=== PATIENT | male | born 1960 | race Caucasian/White ===

== ENCOUNTER 2019-02-16 14:43 | Emergency (ER) | payer MEDICARE, SELFPAY ==
[2019-02-16 14:48] VITALS: BP 107/60; PULSE 105; RESP 18; TEMP 37.4; O2SAT 98; BMI 27.3
--- NOTE | 2019-02-16 14:50 | ED.RN ---
STATES CHEST IS NO LONGER HURTING NOW THAT HE IS NOT WALKING AROUND
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
--- NOTE | 2019-02-16 15:30 | ED.DEP ---
ED Disposition - Plan for ED Patient: Instructions: Fibromyalgia Prescriptions: Acetaminophen [Tylenol] 325 mg PO Q4H PRN PRN #30 cap PRN Reason: Pain Score 1-10/10 Prescription Printed Referrals: Isai Thompson MD [Primary Care Provider] - 5-7 Days
--- NOTE | 2019-02-16 16:10 | CM.ED ---
Social Work Consult: Transportation Informant: GRETTA Greco After patient discharged from Emergency department it was determined that patient will need transportation to home. This social work faculty member met with patient in triage. Patient appearing to have difficulty following directions on Google maps to get to [facility]. This social work faculty member educating patient on [facility] as an option. Patient stating that [facility] will work. This social work faculty member showing patient where [facility] warp picker is. All questions answered. Vipul VELEZ, SULEMA
--- NOTE | 2019-02-16 16:17 | ED.RN ---
DISCHARGE INSTRUCTIONS GIVEN TO AND REVIEWED WITH PATIENT, PATIENT DENIES QUESTIONS OR CONCERNS AND VOICES UNDERSTANDING OF DISCHARGE INSTRUCTIONS. PT AMBULATES OUT OF ROOM WITHOUT DIFFICULTY.
== END 2019-02-16 16:18 | disposition home or self-care (01) ==
PROVIDERS: Emergency Provider Emergency Medicine
DX: M79.605 Pain in left leg (principal); R07.9 Chest pain, unspecified; G89.29 Other chronic pain; F20.9 Schizophrenia, unspecified; M79.7 Fibromyalgia; Z72.0 Tobacco use
CPT/HCPCS: 99284

== ENCOUNTER 2019-02-25 23:52 | Emergency (ER) | payer MEDICARE, SELFPAY ==
[2019-02-25 23:53] VITALS: BP 124/76; PULSE 96; RESP 16; TEMP 36.7; O2SAT 95; BMI 31.9
[2019-02-26] VITALS (7 sets, daily range): BP systolic 101; BP diastolic 48; PULSE 66; RESP 15–18; O2SAT 96
--- NOTE | 2019-02-26 00:03 | ED.RN ---
PT STATES HE HEARS VOICES THAT TELL HIM TO JUMP IN FRONT OF SEMI TO KILL HIMSELF. SEES ANGELS, WANTS TO BUT DENIES THOUGHTS OF WANTING TO HARM ANYONE ELSE. STATES HE ATTEMPTED OVERDOSE IN PAST, ALSO ATTEMPTED TO BLOW UP HOUSE WITH GAS LEAK. PT UNDER CONSTANT OBSERVATION FROM TIME OF ARRIVAL BY GRETTA.
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
[2019-02-26 00:23] LABS: Absolute Lymphocyte Count 1.52 X10^3/uL (0.83-4.51); Absolute Neutrophil Count 4.1 X10^3/uL (2.0-7.7); Basophil# 0.06 X10^3/uL; Basophil% 0.9 % (0-1); Eosinophil# 0.22 X10^3/uL; Eosinophils% 3.2 % (0-5); Hematocrit 41.6 % (40-54); Hemoglobin 13.9 g/dL (13.0-16.5); Lymphocyte # 1.52 X10^3/ul (4.0); Mean Corp Hgb Conc 33.4 g/dL (32-36); Mean Corpuscular Hgb 29.5 pg (27.0-32.0); Mean Corpuscular Volume 88.3 fL (80-94); Monocyte# 0.95 X10^3/uL; Monocyte% 13.8 % (0-10); NRBC Flagged by Analyzer 0.3 % (0-5); Neutrophil # 4.12 X10^3/uL (2.7-7.7); Neutrophil % 59.7 % (47-70); Platelet Count 323 K/mm3 (150-450); RBC Distribution Width CV 13.4 % (11.6-14.6); RBC Distribution Width SD 43.8 fl (35.1-43.9); Red Blood Count 4.71 M/mm3 (4.6-6.2); White Blood Count 6.9 K/mm3 (4.4-11.0)
--- NOTE | 2019-02-26 00:24 | ED.DCSUM_ITS ---
- ER Visit Summary Date of Service: 02/26/19 Chief Complaint: Suicidal ideation History of Present Illness: The patient is a 58 M presenting per police for suicidal ideation. He states that he is suicidal and has thought of running in front of a semi-truck. He states that he feels that someone is trying to steal money from him. He believes people are out to get him. He denies hallucinations. He admits to marijuana use. Admits to occasional alcohol use. Physical Examination: Vitals are stable. Patient is afebrile. Alert no acute distress. HEENT exam is unremarkable. Neck is supple. Lungs are clear and equal bilaterally. Heart is regular rate and rhythm. Extremities are unremarkable. Skin is warm and dry. No focal neurologic deficit. Pressured speech, suicidal ideation, paranoid ideation Remainder of exam is unremarkable. Emergency Department Course and Treatment: CBC unremarkable. Chemistries normal except BUN 25, glucose 117. Alcohol and tox are negative. Discussed with the counseling center for evaluation. Disposition: Per counseling center Impression: Suicidal ideation, paranoia This note was generated with [employer] dictation software. It may contain incorrect words, spelling, and punctuation that were not noted in review of the chart prior to signing ED Disposition - Plan for ED Patient: Referrals: Care Physician,No Primary [Primary Care Provider] -
[2019-02-26 00:28] LABS: Anion Gap 8 (5-15); BUN 25 mg/dL (7-18); BUN/Creat Ratio 34.1 RATIO (10-20); Calcium,Total 9.5 mg/dL (8.5-10.1); Chloride 106 mmol/L (98-107); Creatinine, Serum 0.73 mg/dL (0.70-1.30); EST Glomerular Filtration Rate 117 mL/min (>60); Est Glom Filt Rate - Afr Amer 141 mL/min (>60); Estimated Creatinine Clearance 103.12 ml/min; Glucose 117 mg/dL (74-106); Potassium 3.6 mmol/L (3.5-5.1); Sodium Level 138 mmol/L (136-145)
[2019-02-26 00:36] LABS: Amphetamine Urine VISTA NEGATIVE (<1000 ng/mL); Barbiturate Urine VISTA NEGATIVE (< 200 ng/mL); Benzodiazepine Urine VISTA NEGATIVE (< 200 ng/mL); Cocaine Urine VISTA NEGATIVE (< 300 ng/mL); Ecstacy Urine VISTA NEGATIVE (< 500 ng/mL); Methadone Urine VISTA NEGATIVE (< 300 ng/mL); PCP Urine VISTA NEGATIVE (< 25 ng/mL); THC Urine VISTA NEGATIVE (< 50 ng/mL); Vista UDS pH Range 5
--- NOTE | 2019-02-26 07:23 | ED.RN ---
[facility] DENIED PT. HE DOES NOT HAVE ENOUGH BED DAYS PER TARI GLYNN
[2019-02-26] MEDS: Meloxicam 15 MG Tablet PO (12:06)
[2019-02-26] MEDS: Loratadine 10 MG Tablet PO (12:06)
[2019-02-26] MEDS: Lisinopril 10 MG Tablet PO (12:06)
[2019-02-26] MEDS: OXcarbazepine 300 MG Tablet PO (12:06)
== END 2019-02-26 12:50 ==
PROVIDERS: Emergency Provider Emergency Medicine
DX: R45.851 Suicidal ideations (principal); F22 Delusional disorders; I10 Essential (primary) hypertension; Z79.899 Other long term (current) drug therapy; F12.90 Cannabis use, unspecified, uncomplicated; Z72.0 Tobacco use
CPT/HCPCS: 80048; 80307; 80320; 85025; 99285; G0480

== ENCOUNTER 2019-03-11 20:23 | Emergency (ER) | payer MEDICARE, SELFPAY ==
[2019-03-11 20:24] VITALS: BP 128/88; PULSE 85; RESP 18; TEMP 36.7; O2SAT 95; BMI 30.2
--- NOTE | 2019-03-11 20:40 | ED.DCSUM_ITS ---
- ER Visit Summary Date of Service: 03/11/19 Chief Complaint: Suicidal thoughts History of Present Illness: The patient is a 58 M presenting with suicidal thoughts. Patient states he was upset today because his girlfriend did not come visit him. He is currently homeless and living in a hotel. He has a plan to jump in front of a car or truck. He had the same plan within the last month and was admitted. He continues to feel suicidal. He states he is not on any medication for depression. He admits to alcohol use. Denies drug use. Physical Examination: Vitals are stable. Patient is afebrile. Alert no acute distress. HEENT exam is unremarkable. Neck is supple. Lungs are clear and equal bilaterally. Heart is regular rate and rhythm. Abdomen is soft nontender nondistended. Extremities are unremarkable. Skin is warm and dry. No focal neurologic deficit. Depressed affect Remainder of exam is unremarkable. Emergency Department Course and Treatment: CBC, chemistries unremarkable. Alcohol 20. Tox is pending. Patient will be evaluated by the counseling center in the ED. Disposition: Per counseling center Impression: Suicidal ideation This note was generated with [employer] dictation software. It may contain incorrect words, spelling, and punctuation that were not noted in review of the chart prior to signing ED Disposition - Plan for ED Patient: Referrals: Care Physician,No Primary [Primary Care Provider] -
[2019-03-11 21:01] LABS: Basophil# 0.06 X10^3/uL; Basophil% 0.7 % (0-1); Eosinophil# 0.22 X10^3/uL; Eosinophils% 2.6 % (0-5); Hematocrit 45.1 % (40-54); Hemoglobin 14.9 g/dL (13.0-16.5); Lymphocyte % 28.6 % (19-41); Mean Corpuscular Hgb 29.7 pg (27.0-32.0); Mean Corpuscular Volume 89.8 fL (80-94); Mean Platelet Vol. 8.9 fl (6.2-12.0); Monocyte# 0.72 X10^3/uL; Monocyte% 8.6 % (0-10); NRBC Flagged by Analyzer 0 % (0-5); Neutrophil # 4.96 X10^3/uL (2.7-7.7); Neutrophil % 59.3 % (47-70); Platelet Count 335 K/mm3 (150-450); RBC Distribution Width CV 13.2 % (11.6-14.6); RBC Distribution Width SD 43.4 fl (35.1-43.9); Red Blood Count 5.02 M/mm3 (4.6-6.2); White Blood Count 8.4 K/mm3 (4.4-11.0)
[2019-03-11 21:03] LABS: Anion Gap 8 (5-15); BUN 17 mg/dL (7-18); BUN/Creat Ratio 28.3 RATIO (10-20); Calcium,Total 9.5 mg/dL (8.5-10.1); Chloride 107 mmol/L (98-107); EST Glomerular Filtration Rate 147 mL/min (>60); Est Glom Filt Rate - Afr Amer 177 mL/min (>60); Estimated Creatinine Clearance 125.47 ml/min; Glucose 91 mg/dL (74-106); Sodium Level 141 mmol/L (136-145)
[2019-03-11 22:23] VITALS: BP 111/73; PULSE 73; RESP 16; O2SAT 97
[2019-03-11 22:59] LABS: Amphetamine Urine VISTA NEGATIVE (<1000 ng/mL); Barbiturate Urine VISTA NEGATIVE (< 200 ng/mL); Benzodiazepine Urine VISTA NEGATIVE (< 200 ng/mL); Cocaine Urine VISTA NEGATIVE (< 300 ng/mL); Ecstacy Urine VISTA NEGATIVE (< 500 ng/mL); Methadone Urine VISTA NEGATIVE (< 300 ng/mL); PCP Urine VISTA NEGATIVE (< 25 ng/mL); THC Urine VISTA NEGATIVE (< 50 ng/mL); Vista UDS pH Range 6
[2019-03-11 23:13] VITALS: RESP 18
[2019-03-12 00:08] VITALS: BP 98/62; PULSE 69; RESP 20; O2SAT 96
[2019-03-12 03:11] VITALS: RESP 16
[2019-03-12 04:02] VITALS: BP 125/65; PULSE 59; RESP 16; O2SAT 97
[2019-03-12 05:11] VITALS: RESP 15
[2019-03-12 06:17] VITALS: RESP 16
--- NOTE | 2019-03-12 08:06 | NURSING ---
0800 CALLED [facility], NONE TIL THIS EVENING 08 CALLED [facility], SENDING ONE FROM [place]
[2019-03-12] MEDS: Meloxicam 15 MG Tablet PO (08:59)
[2019-03-12] MEDS: Lisinopril 10 MG Tablet PO (08:59)
[2019-03-12] MEDS: Loratadine 10 MG Tablet PO (08:59)
[2019-03-12 09:01] VITALS: BP 124/60; PULSE 62; RESP 18; O2SAT 97
== END 2019-03-12 09:03 | disposition home or self-care (01) ==
PROVIDERS: Emergency Provider Emergency Medicine
DX: R45.851 Suicidal ideations (principal); Z59.0 Homelessness; I25.10 Atherosclerotic heart disease of native coronary artery without angina pectoris; I10 Essential (primary) hypertension; Z72.0 Tobacco use; F32.9 Major depressive disorder, single episode, unspecified; Z72.89 Other problems related to lifestyle
CPT/HCPCS: 36415; 80048; 80307; 80320; 85025; 99285; G0480

== ENCOUNTER 2019-03-28 18:11 | Emergency (ER) | payer MEDICARE, SELFPAY ==
[2019-03-28 18:14] VITALS: BP 112/73; PULSE 97; RESP 20; TEMP 36.8; O2SAT 94; BMI 28.1
--- NOTE | 2019-03-28 18:18 | EKG12_ITS ---
Test Reason : CP Blood Pressure : / mmHG Vent. Rate : 099 BPM Atrial Rate : 099 BPM P-R Int : 176 ms QRS Dur : 090 ms QT Int : 366 ms P-R-T Axes : 071 010 070 degrees QTc Int : 469 ms Normal sinus rhythm Nonspecific ST abnormality Abnormal ECG Confirmed by FABIO BEDOYA, ERIC ([id number]), news videotape editor YOMAIRA ARCE ([id number]) on 03/31/2019 11:38:54 AM Referred By: Isai Thompson Confirmed By:ERIC MCCARTHY MD
--- NOTE | 2019-03-28 18:18 | RAD_ITS ---
STUDY: X-RAY CHEST REASON FOR EXAM: Male, 58 years old. Chest pain TECHNIQUE: Frontal and lateral views of the chest. COMPARISON: None. FINDINGS: Skin staple on the right. Multiple calcified pulmonary granulomata. The lungs are clear and expanded. There is no demonstrated pleural abnormality. Normal size heart. Normal mediastinum and jumana. Normal visualized pulmonary arteries. Normal visualized aortic arch and descending thoracic aorta. Normal visualized thoracic spine. Normal visualized ribs, clavicles, and shoulders. There is no demonstrated abnormality of the visualized soft tissue structures of the upper abdomen. RAD/Chest PA and Lateral IMPRESSION: No acute pulmonary findings. Electronically Signed: Shon Odom MD at 19:17 EST Tel , Service support ,
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
[2019-03-28] MEDS: Albuterol 2.5 MG/3 ML VIAL.NEB. INHALATION (18:29)
[2019-03-28 18:30] VITALS: PULSE 97; RESP 18
[2019-03-28 18:32] LABS: Absolute Lymphocyte Count 1.91 X10^3/uL (0.83-4.51); Absolute Neutrophil Count 5.7 X10^3/uL (2.0-7.7); Basophil# 0.05 X10^3/uL; Basophil% 0.6 % (0-1); Eosinophil# 0.26 X10^3/uL; Eosinophils% 2.9 % (0-5); Hematocrit 38.6 % (40-54); Hemoglobin 12.9 g/dL (13.0-16.5); Lymphocyte # 1.91 X10^3/ul (4.0); Lymphocyte % 21.6 % (19-41); Mean Corp Hgb Conc 33.4 g/dL (32-36); Mean Corpuscular Hgb 29.5 pg (27.0-32.0); Mean Corpuscular Volume 88.3 fL (80-94); Mean Platelet Vol. 8.9 fl (6.2-12.0); Monocyte% 10.2 % (0-10); NRBC Flagged by Analyzer 0 % (0-5); Neutrophil # 5.68 X10^3/uL (2.7-7.7); Neutrophil % 64.4 % (47-70); Platelet Count 267 K/mm3 (150-450); RBC Distribution Width CV 13.7 % (11.6-14.6); RBC Distribution Width SD 44.6 fl (35.1-43.9); Red Blood Count 4.37 M/mm3 (4.6-6.2); White Blood Count 8.8 K/mm3 (4.4-11.0)
[2019-03-28] MEDS: Ketorolac 15 MG/ML Vial IV (18:36)
[2019-03-28 18:51] LABS: D-Dimer Quantitative (DVT/PE) 0.31 FEU/ug/m (0.27-0.49)
[2019-03-28 18:54] LABS: Anion Gap 7 (5-15); BUN 20 mg/dL (7-18); BUN/Creat Ratio 24.8 RATIO (10-20); Calcium,Total 8.8 mg/dL (8.5-10.1); Chloride 107 mmol/L (98-107); EST Glomerular Filtration Rate 105 mL/min (>60); Est Glom Filt Rate - Afr Amer 127 mL/min (>60); Estimated Creatinine Clearance 97.38 ml/min; Glucose 109 mg/dL (74-106); Potassium 3.6 mmol/L (3.5-5.1); Sodium Level 141 mmol/L (136-145)
[2019-03-28 20:09] VITALS: BP 128/76; PULSE 76; RESP 14
[2019-03-28 20:57] VITALS: BP 124/76; PULSE 93; RESP 15
--- NOTE | 2019-03-28 21:20 | CM.ED ---
SOCIAL WORK INFORMANT: NURSEERICA REASON FOR REFERRAL: PATIENT REPORTS HE IS HOMELESS MET WITH PATIENT IN ROOM. INTRODUCED ROLE AND REASON FOR REFERRAL. PATIENT STATES WAS STAYING AT THE [facility] AND UNSURE IF HE CAN RETURN. PATIENT STATES FRIEND WAS PAYING FOR HIM TO STAY IN [place]. PATIENT PROVIDED THIS WORKER WITH PHONE NUMBER FOR FAMILY FRIEND, SAVI [phone]. CALL TO THE [facility], CLOTH MEASURER MACHINE STATES PATIENT IS NOT A RESIDENT AND UNABLE TO RETURN UNTIL NEXT YEAR. CALL TO PATIENT'S FRIEND, SAVI. PER SAVI, WAS PAYING FOR PATIENT TO STAY IN [place] AND UNABLE TO CONTINUE TO ASSIST PATIENT. SAVI INQUIRING ABOUT OTHER HOMELESS SHELTERS. SAVI INFORMED PATIENT WILL NOT HAVE RIDE. SAVI STATES I'M 84 YEARS OLD AND UNABLE TO DRIVE AT NIGHT. SAVI PROVIDED THIS WORKER WITH PHONE NUMBER FOR A FRIEND OF PATIENT'S BO KENNY [phone]. ATTEMPTED TO CONTACT BO KENNY, NO ANSWER, UNABLE TO LEAVE MESSAGE. CALL TO [facility] [place]. [facility] F[facility]. CALL TO [facility]. NO ANSWER, LEFT MESSAGE FOR PLACEMENT COORDINATOR. UPDATED PATIENT ON THE ABOVE. DISCUSSED OTHER OPTIONS AND PROVIDED PATIENT WITH PHONE TO MAKE CALLS TO OTHER FAMILY/FRIENDS. NURSING UPDATED ON THE ABOVE. Ted MATTHEWS, DECK BUILDER, SUPERVISOR SHEARING.
== END 2019-03-28 21:21 | disposition home or self-care (01) ==
PROVIDERS: Emergency Provider Emergency Medicine; PCP Internal Medicine; Referring Provider Internal Medicine
DX: J20.9 Acute bronchitis, unspecified (principal); J44.1 Chronic obstructive pulmonary disease with (acute) exacerbation; J44.0 Chronic obstructive pulmonary disease with (acute) lower respiratory infection; R07.89 Other chest pain; F17.200 Nicotine dependence, unspecified, uncomplicated; F31.9 Bipolar disorder, unspecified; I10 Essential (primary) hypertension; I25.10 Atherosclerotic heart disease of native coronary artery without angina pectoris; Z90.49 Acquired absence of other specified parts of digestive tract; Z88.8 Allergy status to other drugs, medicaments and biological substances
CPT/HCPCS: 71046; 80048; 84484; 85025; 85379; 93005; 94640; 99285; J7030; A4216

== ENCOUNTER 2019-03-28 21:59 | Emergency (ER) | payer MEDICARE, SELFPAY ==
[2019-03-28 18:14] VITALS: BMI 28.1
[2019-03-28 22:00] VITALS: BP 130/82; PULSE 103; RESP 16; TEMP 36.3; O2SAT 96; BMI 28.1
--- NOTE | 2019-03-28 22:28 | ED.VISSUMM ---
- ER Visit Summary Date of Service: 03/28/19 Chief Complaint: Suicidal per nursing, patient denies History of Present Illness: The patient is a 58 M who was triaged for suicidal ideation and wanting to jump in front of a truck. The patient denies this. He said he had a mood swing and he said it so that he could be evaluated for his chronic wrist/carpal tunnel pain and chronic shoulder pain. He is asking to have surgery for these. He is asking to see a surgeon tonight and or to be admitted for surgery. Patient denies any new trauma or inciting events to cause his pain. He does not take anything. Symptoms are worse with use. Nothing seems to make them better. No joint swelling, redness, warmth, fevers. Patient was seen earlier today for a COPD exacerbation. He says that he is homeless and cannot go to the skilled nursing or stay with family. Physical Examination: Afebrile and vital signs unremarkable. Patient is alert and oriented. Depressed mood and flat affect. Head and neck unremarkable. Extremities show normal inspection. Good range of motion. No deformities or laxities. Neurovascularly intact distally. Heart regular. Lungs clear. Skin unremarkable. Test Results: None indicated Emergency Department Course and Treatment: The patient denies suicidal ideation. He said that he used that as an excuse to be evaluated. I asked him 3 different ways if he was suicidal, and each time he said no. It sounds like the real issue is that he is homeless. He cannot go back to the [facility]. He cannot reach family members, and he has no resources or any other place to go. He is also requesting surgery for his chronic joint pains. He is requesting that I make an appointment. He said that he will need to follow-up as an outpatient for this. There is no indication for imaging or diagnostic testing. I reviewed all of his labs and his work-up from earlier today. I find no indication for further evaluation for his problems. Patient will be discharged. If he does have suicidal thoughts or any other emergencies, he should return for an evaluation, otherwise follow-up with primary care. After discharge, but while the patient was still on hospital grounds, he talked to the triage nurse. He said that he was suicidal. I went to speak with him, and he said that he is psychotic and needs admission to a psych hospital. I asked him what changed since I had just seen him minutes earlier. He said I got outside in the cold air, and my back and legs were hurting. I asked him if he just wanted to be admitted so he did not have to be out in the cold and he said yes. He then denied suicidal thoughts or ideation. We were able to get the patient some paper pants and blankets, and he will be discharged. Treatment Plan: As above Disposition: Discharge Impression: 1. Chronic bilateral wrist pain 2. Chronic bilateral shoulder pain This note was generated with [employer] dictation software. It may contain incorrect words, spelling, and punctuation that were not noted in review of the chart prior to signing ED Disposition - Plan for ED Patient: Disposition: Home or Assisted Living Instructions: What Is Carpal Tunnel Syndrome (CTS)?, Shoulder Problems Referrals: Andria Nolan [NON-STAFF] - Isai Thompson MD [Primary Care Provider] -
[2019-03-28 22:33] VITALS: RESP 16
--- NOTE | 2019-03-28 22:34 | ED.DEP ---
ED Disposition - Plan for ED Patient: Instructions: What Is Carpal Tunnel Syndrome (CTS)?, Shoulder Problems Referrals: Isai Thompson MD [Primary Care Provider] - Andria Nolan [NON-STAFF] -
== END 2019-03-28 22:48 | disposition home or self-care (01) ==
LOC: ED 22:28
PROVIDERS: Emergency Provider Emergency Medicine; Family Provider Internal Medicine; PCP Internal Medicine
DX: M25.531 Pain in right wrist (principal); M25.532 Pain in left wrist; M25.512 Pain in left shoulder; M25.511 Pain in right shoulder; G89.29 Other chronic pain; J44.1 Chronic obstructive pulmonary disease with (acute) exacerbation; Z59.0 Homelessness
CPT/HCPCS: 71046; 80048; 84484; 85025; 85379; 93005; 94640; 96374; 99283; 99285; J7030; A4216

== ENCOUNTER 2019-03-30 03:54 | Emergency (ER) | payer MEDICARE, SELFPAY ==
[2019-03-30 03:56] VITALS: BP 150/97; PULSE 88; RESP 18; TEMP 36.1; O2SAT 98; BMI 32.2
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
[2019-03-30 05:39] VITALS: RESP 16
--- NOTE | 2019-03-30 05:39 | ED.RN ---
PT CALLED THIS RN INTO THE ROOM AND ASKED THE DOOR TO BE SHUT SO HE CAN TALK. PT STATES HE CANNOT WALK [place] [facility] AND THAT HE CANNOT WALK ENOUGH TO EVEN LEAVE THIS HOSPITAL. THIS RN TOLD PATIENT THAT HE WAS OBSERVED WALKING INDEPENDENTLY TO THE BATHROOM FOR 10 MINUTES AND WALKED IN WITH THE [facility] INDEPENDENTLY. HE THEN ASKED THE HOSPITAL TO GIVE HIM A CANE FROM OUR SUPPLIES WHICH HE WAS TOLD IS NOT POSSIBLE, HE THEN DEMANDED THE HOSPITAL GIVE HIM ONE OF THE ER WHEELCHAIRS, WHICH HE WAS ALSO TOLD NO. PT THEN STATED WE AREN'T LETTING HIM STAY BECAUSE HE HAS A DICKSON AND IS HOMELESS. PT WAS TOLD NONE OF THOSE THINGS MATTER AND HE WAS MEDICALLY CLEARED STABLE BY THE DOCTOR. AT THIS POINT THE CHARGE NURSE WAS NOTIFIED TO HAVE CONTACT WITH THE PATIENT TO HELP RESOLVE HIS CONCERNS
== END 2019-03-30 06:00 | disposition home or self-care (01) ==
PROVIDERS: Emergency Provider Emergency Medicine; Family Provider Internal Medicine; PCP Internal Medicine
DX: Z59.0 Homelessness (principal); F17.200 Nicotine dependence, unspecified, uncomplicated; F31.9 Bipolar disorder, unspecified; I10 Essential (primary) hypertension; I25.10 Atherosclerotic heart disease of native coronary artery without angina pectoris; J44.9 Chronic obstructive pulmonary disease, unspecified; Z88.8 Allergy status to other drugs, medicaments and biological substances; Z90.49 Acquired absence of other specified parts of digestive tract
CPT/HCPCS: 99284

== ENCOUNTER 2019-03-30 23:14 | Emergency (ER) | payer MEDICARE, SELFPAY ==
[2019-03-30 03:56] VITALS: BMI 32.2
[2019-03-30 23:14] VITALS: BP 138/77; PULSE 92; RESP 18; TEMP 36.2; O2SAT 97; BMI 27.8
--- NOTE | 2019-03-30 23:26 | RAD_ITS ---
STUDY: X-RAY - RIGHT KNEE REASON FOR EXAM: Male, 58 years old. Knee pain TECHNIQUE: 2 view(s) of the knee. COMPARISON: None. FINDINGS: Normal visualized distal femur. Normal visualized proximal tibia and fibula. Normal proximal tibiofibular articulation. Normal medial femorotibial compartment. Normal lateral femorotibial compartment. Normal patellofemoral articulation. The soft tissue structures are unremarkable. RAD/Knee 1 or 2 Views IMPRESSION: Normal x-ray examination of the knee. Electronically Signed: Nataliia Zapata, at 0:34 EST Tel , Service support ,
--- NOTE | 2019-03-30 23:27 | RAD_ITS ---
STUDY: X-RAY - LEFT KNEE REASON FOR EXAM: Male, 58 years old. Knee pain TECHNIQUE: 2 view(s) of the knee. COMPARISON: None. FINDINGS: Normal visualized distal femur. Normal visualized proximal tibia. Deformity consistent with an old healed fracture of the proximal fibular diaphysis. Normal proximal tibiofibular articulation. Normal medial femorotibial compartment. Normal lateral femorotibial compartment. There is mild degenerative arthrosis of the patellofemoral articulation. There is a small volume joint effusion. The soft tissue structures are unremarkable. RAD/Knee 1 or 2 Views IMPRESSION: Degenerative arthrosis. Electronically Signed: Nataliia Zapata, at 0:45 EST Tel , Service support ,
--- NOTE | 2019-03-30 23:29 | ED.DCSUM_ITS ---
- ER Visit Summary Date of Service: 03/30/19 Chief Complaint: Bilateral knee injury History of Present Illness: The patient is a 58 M who is homeless and states he was walking to the [employer] when he tripped and fell down injuring his bilateral knees. He notes abrasions. He states that he felt like he broke his knees. He was transported by EMS. He notes his last tetanus was in the last [address] [facility]. He denies striking his head. He denies any neck or back pain. He denies any other injuries other than to the knees Physical Examination: Afebrile vital signs are stable Gen: Well-nourished well-developed Head: Normocephalic atraumatic Eyes: Perrl EOMI ENT: TMs clear no rhinorrhea moist mucous membranes Neck: Supple no lymphadenopathy no JVD nontender CVS: Regular rate rhythm no murmurs normal S1-S2 Respiratory: No distress clear to auscultation bilaterally chest nontender Abdomen: Soft nontender nondistended normal bowel sounds no masses Back: Nontender Extremity: Lateral superficial abrasions to his. Extensor mechanisms are intact. Full range of motion. No deformities. No effusions. Ligaments are stable. No obvious foreign bodies were seen. Skin: Normal color no rash Neuro: alert orientated ?3 CN II-XII intact normal strength sensation reflexes gait cerebellar Psych: Normal affect normal mood Test Results: Bilateral knee films were obtained. These were negative for obvious fracture. Degenerative changes noted. Emergency Department Course and Treatment: Wounds were cleansed and dressed. Patient will be discharged with instructions for local wound care. Tylenol M otrin for pain Impression: 1. Bilateral knee contusion and abrasions This note was generated with [employer] dictation software. It may contain incorrect words, spelling, and punctuation that were not noted in review of the chart prior to signing ED Disposition - Plan for ED Patient: Disposition: Home or Assisted Living Instructions: Abrasion Referrals: Isai Thompson MD [Primary Care Provider] - As Needed
[2019-03-30] MEDS: Acetaminophen 500 MG Tablet 1000 MG PO (23:38)
== END 2019-03-31 00:19 | disposition home or self-care (01) ==
LOC: ED 23:52
PROVIDERS: Emergency Provider Emergency Medicine; Family Provider Internal Medicine; PCP Internal Medicine
DX: S80.02XA Contusion of left knee, initial encounter (principal); S80.01XA Contusion of right knee, initial encounter; W01.0XXA Fall on same level from slipping, tripping and stumbling without subsequent striking against object, initial encounter; Y93.01 Activity, walking, marching and hiking; Y92.89 Other specified places as the place of occurrence of the external cause; Y99.9 Unspecified external cause status; Z59.0 Homelessness; J44.9 Chronic obstructive pulmonary disease, unspecified; I25.10 Atherosclerotic heart disease of native coronary artery without angina pectoris; Z72.0 Tobacco use; F31.9 Bipolar disorder, unspecified
CPT/HCPCS: 73560; 99283; 99284

== ENCOUNTER → 2019-04-06 12:20 | Outpatient (CLI) | payer MEDICARE, SELFPAY ==
[2019-03-30 23:14] VITALS: BMI 27.8
[2019-04-06 12:39] LABS: D-Dimer Quantitative (DVT/PE) 0.38 FEU/ug/m (0.27-0.49)
== END ==
PROVIDERS: Family Provider Internal Medicine; PCP Internal Medicine; Referring Provider Family Medicine; Visit Provider Family Medicine
DX: M79.89 Other specified soft tissue disorders (principal); R06.02 Shortness of breath; T14.90XA Injury, unspecified, initial encounter
CPT/HCPCS: 85379

== ENCOUNTER 2019-04-07 01:30 | Emergency (ER) | payer MEDICARE, SELFPAY ==
[2019-04-07 01:33] VITALS: BP 158/84; PULSE 71; RESP 16; TEMP 36.6; O2SAT 100; BMI 27.3
--- NOTE | 2019-04-07 01:40 | ED.VIS.GEN ---
History of Present Illness Chief Complaint: Mental Health Informant: Patient Onset: Today Context: Gradual Onset Current Severity: Mild Maximum Severity: Mild Narrative: The patient presents to the emergency department with police. Patient is a well-known schizophrenic. He states his been compliant with his medications. He apparently had difficulty using his credit card at [facility]. He was speaking to the manager action and had a voice that he had recently been suicidal. The patient states that this was a few weeks ago and he was actually admitted to a psychiatric hospital. He states he is currently not suicidal. He has no thoughts of harming himself. He states he is been compliant with his medications. He denies any drug or alcohol use. He states that he does have a safe place to stay. Prior similar symptoms: No Recent Illness/Hospitalization: No Past Medical History - Allergies and Home Meds Allergies/Adverse Reactions: Allergies benztropine [From Cogentin] Adverse Reaction (Verified 04/07/19 01:32) Other CAUSES MILD HEART ATTACKS haloperidol [From Haldol] Adverse Reaction (Verified 04/07/19 01:32) Other CAUSES MILD HEART ATTACKS lithium Adverse Reaction (Verified 04/07/19 01:32) Other CAUSES MILD HEART ATTACKS Primary Care Physician: Isai Thompson MD [Primary Care Provider] - Prior records reviewed: Yes Past Medical History: - - Schizophrenia, coronary vascular disease Surgical History: angioplasty, cholecystectomy Smoking Status: Current every day smoker Review of Systems General: Denies: Chills, Fever, Sweats Eyes: Denies: Visual changes - bilaterally, Diplopia ENT: Denies: Rhinorrhea, Sore throat Cardiovascular: Denies: Chest pain, Palpitations Respiratory: Denies: Dyspnea, Cough, Dyspnea on exertion Gastrointestinal: Denies: Abdominal pain, Nausea, Vomiting, Diarrhea, Melena, Hematochezia Genitourinary: Denies: Dysuria, Hematuria, Frequency Musculoskeletal: Denies: Back pain, Extremity Pain Skin: Denies: Rash, Wounds Neurological: Denies: Headache, Weakness, Numbness Physical Exam Vital Signs/Narrative: Vital Signs Temp Pulse Resp BP Pulse Ox 04/07/19 01:33 97.9 F 71 16 158/84 H 100 Inital Vital Signs reviewed: Yes General: Well nourished, Well developed, No Acute Distress Head: Normocephalic, Atraumatic Eyes: Perrl, EOMI ENT: Moist mucous membranes, No rhinorrhea Neck: Supple, Nontender Cardiovascular: Regular rate, Regular rhythm, No murmurs Respiratory: No distress, CTA bilaterally, Chest nontender Abdomen: Soft, Nontender, Nondistended, Normal bowel sounds Back: Nontender, Normal Inspection Extremities: Nontender, No edema Skin: Normal color, No rash Neurological: Alert, Oriented x3, Cranial nerves II-XII grossly intact, Normal Strength, Normal Sensation Psychological: Normal affect, Normal Mood Diagnostic/Tx/Re-eval - Medical Decision Making The patient is not suicidal or homicidal. He is having no delusions of paranoia. He states he is been compliant with his medications. He was here with police just given his underlying psychiatric history. At this point, I do not feel that he requires any further work-up. He denies any symptoms. He is not at risk to himself or to others. He will be discharged with police. Impression 1. History of schizophrenia ED Disposition - Plan for ED Patient: Disposition: Home or Assisted Living Instructions: SCHIZOPHRENIA, General Referrals: Isai Thompson MD [Primary Care Provider] -
--- NOTE | 2019-04-07 02:13 | ED.RN ---
PT STATES HE IS NOT SUICIDAL, HE FEELS JITTERY AND SCHIZOPHRENIC BUT DENIES HEARING VOICES OR HAVING ANY SUICIDAL THOUGHTS. PT STATES HE HAS A FOLLOW-UP APPT IN THE MORNING TO SEE HIS PRIMARY ABOUT CHANGING HIS MEDICATION AROUND SO HE DOES NOT FEEL THIS WAY AND STATES HE JUST WANTS TO GO HOME
[2019-04-07 02:29] VITALS: RESP 16
== END 2019-04-07 02:30 | disposition home or self-care (01) ==
LOC: ED 01:45
PROVIDERS: Emergency Provider Emergency Medicine; Family Provider Internal Medicine; PCP Internal Medicine
DX: F20.9 Schizophrenia, unspecified (principal)
CPT/HCPCS: A4216

== ENCOUNTER 2019-04-07 12:22 | Emergency (ER) | payer MEDICARE, SELFPAY ==
[2019-04-07 01:33] VITALS: BMI 27.3
[2019-04-07 12:23] VITALS: BP 121/83; PULSE 82; PULSE 83; RESP 17; TEMP 37.1; BMI 33.0
--- NOTE | 2019-04-07 12:46 | RAD_ITS ---
STUDY: X-RAY - LUMBAR SPINE REASON FOR EXAM: Male, 58 years old. TECHNIQUE: view(s) of the lumbar spine were obtained. COMPARISON: None FINDINGS: The vertebral bodies are normal height and alignment except for slight loss of volume involving the body of L1 with some sclerosis of the upper endplates at this level. Also noted spondylolysis at the level of L5 with first degree spondylolisthesis of L5 on S1, there is sclerosis of the endplates at these 2 vertebral bodies associated with narrowing of the disc. The spinous and transverse processes as well as the pedicles are otherwise intact. RAD/Lumbar Spine 2 or 3 Views IMPRESSION: Minimal loss of volume of the body of L1 with sclerosis of the upper end plate. Pars articularis defect at L5 with first-degree spondylolisthesis of L5 on S1 associated with sclerosis of the endplates and narrowing of this intervertebral disc. Electronically Signed: Otis Rubin, at 13:48 EST Tel , Service support ,
--- NOTE | 2019-04-07 15:16 | ED.DCSUM_ITS ---
- ER Visit Summary Date of Service: 04/07/19 Chief Complaint: Back pain History of Present Illness: The patient is a 58 M who presents with back pain that became worse today. Patient states he has a history of chronic back pain. Patient states he was walking when his back pain became severe. Patient desc ribes his pain as sharp and throbbing. Patient states the pain radiates down his left leg. Patient admits to some numbness and tingling in his left leg. Patient denies any bowel or bladder changes. Patient denies any saddle anesthesia. Patient denies any trauma or injury. Physical Examination: Vital signs are stable. Patient is afebrile. Patient is in no acute distress. Oral mucosa is pink and moist. Neck is supple. Trachea is midline. There is no JVD. Musculoskeletal exam reveals tenderness over the lower lumbar paraspinal muscles bilaterally, slightly worse on the left. Straight leg raises were negative. Cranial nerves II through XII are intact. There are no focal motor or sensory deficits noted. Test Results: X-rays of the lumbar spine were obtained. There are degenerative changes. There is no acute process noted. These were interpreted by the radiologist and myself. Emergency Department Course and Treatment: Patient was sleeping on reevaluation. Patient was follow-up with his primary care physician in 5 to 7 days. Recommend to take Tylenol or ibuprofen for pain. Patient understood and was agreeable with plan. All questions were answered. Disposition: Discharged home Impression: Acute low back pain This note was generated with [employer] dictation software. It may contain incorrect words, spelling, and punctuation that were not noted in review of the chart prior to signing ED Disposition - Plan for ED Patient: Disposition: Home or Assisted Living Diagnosis: Acute low back pain Instructions: BACK AND NECK PAIN, General Referrals: Isai Thompson MD [Primary Care Provider] - 5-7 Days
== END 2019-04-07 15:44 | disposition home or self-care (01) ==
PROVIDERS: Emergency Provider Emergency Medicine; Family Provider Internal Medicine; PCP Internal Medicine
DX: M54.5 Low back pain (principal); G89.29 Other chronic pain; R20.2 Paresthesia of skin; R20.0 Anesthesia of skin; F20.9 Schizophrenia, unspecified; M79.7 Fibromyalgia; F17.200 Nicotine dependence, unspecified, uncomplicated; Z59.0 Homelessness; Z88.8 Allergy status to other drugs, medicaments and biological substances; Z90.49 Acquired absence of other specified parts of digestive tract
CPT/HCPCS: 72100; 99282; 99284; A4216

== ENCOUNTER 2019-04-07 18:44 | Emergency (ER) | payer MEDICARE, SELFPAY ==
[2019-04-07 12:23] VITALS: BMI 33.0
[2019-04-07 18:58] VITALS: BP 125/72; PULSE 73; RESP 16; TEMP 36.6; O2SAT 97; BMI 27.3
--- NOTE | 2019-04-07 20:20 | CM.ED ---
SOCIAL WORK INFORMANT: CHARGE NURSE, GERARDO REASON FOR REFERRAL: RECOMMENDATION FOR ED CARE PLAN PER DR. OROPEZA MET WITH PATIENT IN ROOM. INTRODUCED ROLE AND REASON FOR REFERRAL. PATIENT REPORTS IS HOMELESS AND IS WORKING WITH [employer]. PATIENT REPORTS HAS APPOINTMENT TOMORROW WITH DR. STREET. DISCUSSED FREQUENT VISITS TO THE ED. INFORMED PATIENT ABOUT RECOMMENDATION FOR ED CARE PLAN AND EDUCATED PATIENT ON ED CARE PLANS. PATIENT VOICES NO QUESTIONS OR CONCERNS AT THIS TIME. Ted MATTHEWS, MAJOR ACCOUNT MANAGER, VESSEL ORDINARY SEAMAN.
--- NOTE | 2019-04-07 20:33 | ED.VIS.GEN ---
History of Present Illness Chief Complaint: General Illness Narrative: Patient is presenting ultimately secondary to homelessness. Patient called gus because he said that he wanted a ride to the [facility] because he needed to have surgery and needed to be closer to [place]. When I question the patient while he is here he states that he is having an exacerbation of his fibromyalgia. He states that he has head to toe pain. He denies any bowel or bladder incontinence fevers recent injections or surgeries or any recent history of IV drug abuse. Reviewing the patient's chart shows the patient to have multiple visits today. He was evaluated for psych eval late last night, back pain earlier today, and today has another non-verifiable complaint bringing him to the emergency department. Patient has had multiple similar visits in the past. His review of systems is otherwise negative. He tells me that he is staying at the days and which she has been paying for with his Social Security money out of pocket. Past Medical History - Allergies and Home Meds Allergies/Adverse Reactions: Allergies benztropine [From Cogentin] Adverse Reaction (Verified 04/07/19 19:02) Other CAUSES MILD HEART ATTACKS haloperidol [From Haldol] Adverse Reaction (Verified 04/07/19 19:02) Other CAUSES MILD HEART ATTACKS lithium Adverse Reaction (Verified 04/07/19 19:02) Other CAUSES MILD HEART ATTACKS Primary Care Physician: Isai Thompson MD [Primary Care Provider] - Past Medical History: - - Schizophrenia Surgical History: angioplasty, cholecystectomy Smoking Status: Current every day smoker Review of Systems All systems negative except as indicated General: Denies: Chills, Fever, Sweats Eyes: Denies: Visual changes - bilaterally, Diplopia ENT: Denies: Rhinorrhea, Sore throat Cardiovascular: Denies: Chest pain, Palpitations Respiratory: Denies: Dyspnea, Cough, Dyspnea on exertion Gastrointestinal: Denies: Abdominal pain, Nausea, Vomiting, Diarrhea, Melena, Hematochezia Genitourinary: Denies: Dysuria, Hematuria, Frequency Musculoskeletal: Reports: Myalgias, Back pain Skin: Denies: Rash, Wounds Neurological: Denies: Headache, Weakness, Numbness Physical Exam Vital Signs/Narrative: Vital Signs Temp Pulse Resp BP Pulse Ox 04/07/19 18:58 98 F 73 16 125/72 H 97 Inital Vital Signs reviewed: Yes General: Well nourished, Well developed, No Acute Distress Head: Normocephalic, Atraumatic Eyes: Perrl, EOMI ENT: Moist mucous membranes, No rhinorrhea Neck: Supple, Nontender Cardiovascular: Regular rate, Regular rhythm, No murmurs Respiratory: No distress, CTA bilaterally, Chest nontender Abdomen: Soft, Nontender, Nondistended, Normal bowel sounds Back: Nontender, Normal Inspection Extremities: Nontender, No edema Skin: Normal color, Rash - Atopic dermatitis of the scalp Neurological: Alert, Oriented x3, Cranial nerves II-XII grossly intact, Normal Strength, Normal Sensation Psychological: Normal affect, Normal Mood Diagnostic/Tx/Re-eval - Medical Decision Making Patient upon my evaluation was found to be resting comfortably laying on his side. His physical exam is benign. I reviewed the patient's records, he has multiple similar visits and it seems to be stemming from the fact that the patient is homeless. From an emergent standpoint, the patient does not seem to have any sort of issues that would require intervention or testing at this time. Patient was given dose of Tylenol. Patient does have a care plan pending at this time. He was recommended that if he does not have a place to stay that he could potentially go to the [facility]. ED Disposition - Plan for ED Patient: Disposition: Home or Assisted Living Diagnosis: Fibromyalgia muscle pain, Homelessness Referrals: Isai Thompson MD [Primary Care Provider] - As soon as possible Additional Instructions: If you do not have a place to stay this evening, you can present to the [facility].
[2019-04-07] MEDS: Acetaminophen 500 MG Tablet 1000 MG PO (20:41)
[2019-04-07 20:43] VITALS: BP 155/82; PULSE 80; RESP 17; O2SAT 97
== END 2019-04-07 20:47 | disposition home or self-care (01) ==
PROVIDERS: Emergency Provider Emergency Medicine; Family Provider Internal Medicine; PCP Internal Medicine
DX: M79.7 Fibromyalgia (principal); F17.200 Nicotine dependence, unspecified, uncomplicated; F20.9 Schizophrenia, unspecified; Z59.0 Homelessness; Z88.8 Allergy status to other drugs, medicaments and biological substances; Z90.49 Acquired absence of other specified parts of digestive tract

== ENCOUNTER 2019-04-10 00:51 | Emergency (ER) | payer MEDICARE, SELFPAY ==
[2019-04-10 00:52] VITALS: BP 159/99; PULSE 95; RESP 16; TEMP 36.7; O2SAT 98; BMI 28.8
--- NOTE | 2019-04-10 01:19 | RAD_ITS ---
HISTORY: C/O RT FOOT PAIN NKI ADDITIONAL HISTORY: None provided. TECHNIQUE: Right foot 3 views Number of images including paperwork: 3 COMPARISON: None FINDINGS: BONES: No acute fracture. Hammertoe deformities. JOINTS: No subluxation. Mild to moderate degenerative changes of the ankle, mid foot and first MTP joint. SOFT TISSUES: No distinct foreign body. RAD/Foot min 3 Views IMPRESSION: Degenerative changes without acute osseous abnormality. at 0139 Reported and signed by: Farzana Holguin MD Electronically Signed: Farzana Holguin MD at 1:39 EST Tel , Service support ,
--- NOTE | 2019-04-10 01:20 | ED.DCSUM_ITS ---
History of Present Illness Chief Complaint: Lower Extremity Injury Detail of Chief Complaint: Right foot and ankle pain, shaking Informant: Patient Narrative: Patient presents via EMS for what is documented as bilateral ankle pain. Patient is currently homeless. He states he tried to go to [facility] and they told him he is not welcome there until May 13. He reportedly is getting an apartment next week and can move in next Saturday. Patient states he was wa lking and went to walk around an electrical pole, stepping to close to the curb and rolled his right foot and ankle. Someone from the gas station called police and please called EMS. Patient states he is shaking all over. - Past Medical History (1) Bipolar disorder Status: Chronic (2) CAD (coronary artery disease) Status: Chronic (3) COPD (chronic obstructive pulmonary disease) Status: Chronic (4) Hypertension Status: Chronic Past Medical History - Allergies and Home Meds Allergies/Adverse Reactions: Allergies benztropine [From Cogentin] Adverse Reaction (Verified 04/10/19 00:58) Other CAUSES MILD HEART ATTACKS haloperidol [From Haldol] Adverse Reaction (Verified 04/10/19 00:58) Other CAUSES MILD HEART ATTACKS lithium Adverse Reaction (Verified 04/10/19 00:58) Other CAUSES MILD HEART ATTACKS Primary Care Physician: Isai Thompson MD [Primary Care Provider] - Prior records reviewed: Yes Surgical History: angioplasty, cholecystectomy Lives: Homeless Smoking Status: Current every day smoker Review of Systems General: Denies: Chills, Fever Eyes: Denies: Visual changes - bilaterally ENT: Denies: Bilateral ear pain Cardiovascular: Denies: Chest pain, Palpitations Respiratory: Denies: Dyspnea, Cough Gastrointestinal: Denies: Abdominal pain, Nausea, Vomiting, Diarrhea Musculoskeletal: Reports: Extremity Pain Neurological: Denies: Headache Hematologic: Denies: Easy bruising Allergy: Denies: Uticaria Physical Exam Vital Signs/Narrative: Vital Signs Temp Pulse Resp BP Pulse Ox 04/10/19 00:52 98.1 F 95 16 159/99 H 98 Inital Vital Signs reviewed: Yes General: Well nourished, Well developed Head: Normocephalic ENT: Moist mucous membranes Cardiovascular: Regular rate, Regular rhythm Respiratory: No distress, CTA bilaterally Abdomen: Soft, Nontender Extremities: - - Mild tenderness diffusely around the right foot. No significant edema. Left foot is nontender. Skin: Normal color, - - Skin is cool to the touch. Strong pulses noted. Neurological: Alert, Oriented x3 Psychological: Normal affect Diagnostic/Tx/Re-eval Impressions Foot X-Ray 04/10/19 01:19 IMPRESSION: Degenerative changes without acute osseous abnormality. at 0139 Reported and signed by: Farzana Holguin MD Electronically Signed: Farzana Holguin MD at 1:39 EST Tel , Service support , 04/10/19 01:19 Foot min 3 Views [RAD] Stat - Medical Decision Making Patient was given Tylenol for pain. On repeat evaluation he is resting comfortably. Right foot is wrapped in an Jayden wrap. I did review his multiple recent visits. It appears the patient is homeless and comes in frequently for non-verifiable pain. When I talked to the nurses about patient stating that he was going to have a an apartment next week they state that he told in the same thing 3 weeks ago and they are not sure that this is actually a plan. I did advise the patient that he is welcome to come back at 10 AM this morning to speak with social work if he would like, but I do not have a reason to keep him in the emergency room at this time. ED Disposition - Plan for ED Patient: Disposition: Home or Assisted Living Diagnosis: Foot sprain Instructions: Sprain Foot Referrals: Isai Thompson MD [Primary Care Provider] -
[2019-04-10] MEDS: Acetaminophen 500 MG Tablet 1000 MG PO (01:27)
[2019-04-10 02:37] VITALS: RESP 16
== END 2019-04-10 02:38 | disposition home or self-care (01) ==
PROVIDERS: Emergency Provider Emergency Medicine; Family Provider Internal Medicine; PCP Internal Medicine
DX: S93.601A Unspecified sprain of right foot, initial encounter (principal); X50.1XXA Overexertion from prolonged static or awkward postures, initial encounter; Y93.01 Activity, walking, marching and hiking; Y92.89 Other specified places as the place of occurrence of the external cause; Y99.9 Unspecified external cause status; Z59.0 Homelessness; Z88.8 Allergy status to other drugs, medicaments and biological substances; Z90.49 Acquired absence of other specified parts of digestive tract; F17.200 Nicotine dependence, unspecified, uncomplicated; I10 Essential (primary) hypertension; F31.9 Bipolar disorder, unspecified; I25.10 Atherosclerotic heart disease of native coronary artery without angina pectoris; J44.9 Chronic obstructive pulmonary disease, unspecified
CPT/HCPCS: 73630; 99284

== ENCOUNTER 2019-04-21 23:47 | Emergency (ER) | payer MEDICARE, SELFPAY ==
[2019-04-21 23:48] VITALS: BP 125/75; PULSE 78; RESP 14; TEMP 36.5; O2SAT 100; BMI 32.3
--- NOTE | 2019-04-22 00:02 | ED.RN ---
RN CALLED FOR EKG, PULLED OLD EKGS FOR
--- NOTE | 2019-04-22 00:03 | EKG12_ITS ---
Test Reason : DYSRHYTHMIA Blood Pressure : / mmHG Vent. Rate : 062 BPM Atrial Rate : 062 BPM P-R Int : 158 ms QRS Dur : 078 ms QT Int : 410 ms P-R-T Axes : 024 006 -04 degrees QTc Int : 416 ms Normal sinus rhythm Nonspecific ST and T wave abnormality Abnormal ECG Confirmed by ANGELA BEDOYA, [place] ([id number]), purchasing expeditor JOSE MCCULLOUGH ([id number]) on 04/29/2019 11:28:38 AM Referred By: JOSE RAUL Confirmed By:GITA MILLER MD
--- NOTE | 2019-04-22 00:11 | ED.VIS.GEN ---
History of Present Illness Chief Complaint: General Illness Informant: Patient Narrative: She stated that he is cold. He initially told the staff he was feeling some chest tightness. He stated he does not feel this currently. He has had bed multiple visits due to his homelessness. He stated he cannot go to the [employer]. He stated that he was freezing outside and now feels like he is warming up. He has no place to live per patient. Denies any respiratory symptoms to me. No fevers or chills. He is asking for a place to rest and warm up. I seen him for similar symptoms. - Past Medical History (1) Bipolar disorder Status: Chronic (2) CAD (coronary artery disease) Status: Chronic (3) COPD (chronic obstructive pulmonary disease) Status: Chronic (4) Hypertension Status: Chronic Past Medical History - Allergies and Home Meds Allergies/Adverse Reactions: Allergies benztropine [From Cogentin] Adverse Reaction (Verified 04/21/19 23:53) Other CAUSES MILD HEART ATTACKS haloperidol [From Haldol] Adverse Reaction (Verified 04/21/19 23:53) Other CAUSES MILD HEART ATTACKS lithium Adverse Reaction (Verified 04/21/19 23:53) Other CAUSES MILD HEART ATTACKS Primary Care Physician: Isai Thompson MD [Primary Care Provider] - Prior records reviewed: Yes Past Medical History: - - See problem list Surgical History: angioplasty, cholecystectomy Lives: Homeless Smoking Status: Current every day smoker Alcohol: None Drugs: None Review of Systems General: Denies: Chills, Fever, Sweats Eyes: Denies: Visual changes - bilaterally, Diplopia ENT: Denies: Rhinorrhea, Sore throat Cardiovascular: Denies: Chest pain, Palpitations Respiratory: Denies: Dyspnea, Cough, Dyspnea on exertion Gastrointestinal: Denies: Abdominal pain, Nausea, Vomiting, Diarrhea, Melena, Hematochezia Genitourinary: Denies: Dysuria, Hematuria, Frequency Musculoskeletal: Denies: Back pain, Extremity Pain Skin: Denies: Rash, Wounds Neurological: Denies: Headache, Weakness, Numbness Physical Exam Vital Signs/Narrative: Vital Signs Temp Pulse Resp BP Pulse Ox 04/21/19 23:48 97.7 F L 78 14 125/75 H 100 General: Well nourished, Well developed, No Acute Distress Head: Normocephalic, Atraumatic Eyes: Perrl, EOMI ENT: Moist mucous membranes, No rhinorrhea Neck: Supple, Nontender Cardiovascular: Regular rate, Regular rhythm, No murmurs Respiratory: No distress, CTA bilaterally, Chest nontender Abdomen: Soft, Nontender, Nondistended, Normal bowel sounds Back: Nontender, Normal Inspection Extremities: Nontender, No edema Skin: Normal color, No rash Neurological: Alert, Oriented x3, Cranial nerves II-XII grossly intact, Normal Strength, Normal Sensation Psychological: Normal affect, Normal Mood Diagnostic/Tx/Re-eval - Medical Decision Making KG obtained shows sinus rhythm at a rate of 62. No ischemic findings. Patient will rest in our emergency department and warm up. He will be discharged to follow-up as an outpatient ED Disposition - Plan for ED Patient: Disposition: Home or Assisted Living Diagnosis: Homelessness Instructions: Blank Diagnosis Form Referrals: Isai Thompson MD [Primary Care Provider] - Additional Instructions: Please seek senior living for warmth frequently from the cold weather. Follow-up with the [facility]
[2019-04-22 02:59] VITALS: BP 117/71; PULSE 62; RESP 15
[2019-04-22 04:39] VITALS: BP 117/71; PULSE 71; RESP 15
[2019-04-22 06:15] VITALS: BP 114/51; PULSE 59; RESP 14
[2019-04-22 06:48] VITALS: BP 121/65; PULSE 97; RESP 18; O2SAT 100
== END 2019-04-22 06:52 | disposition home or self-care (01) ==
LOC: ED 04-22 00:18
PROVIDERS: Emergency Provider Emergency Medicine; Family Provider Internal Medicine; PCP Internal Medicine
DX: R07.89 Other chest pain (principal); Z59.0 Homelessness; F17.200 Nicotine dependence, unspecified, uncomplicated; Z90.49 Acquired absence of other specified parts of digestive tract; Z88.8 Allergy status to other drugs, medicaments and biological substances; I10 Essential (primary) hypertension; I25.10 Atherosclerotic heart disease of native coronary artery without angina pectoris; J44.9 Chronic obstructive pulmonary disease, unspecified; F31.9 Bipolar disorder, unspecified
CPT/HCPCS: 93005; 99284; A4216

== ENCOUNTER 2019-04-29 00:54 | Emergency (ER) | payer MEDICARE, SELFPAY ==
[2019-04-29 00:56] VITALS: BP 135/80; PULSE 70; RESP 18; TEMP 36.7; O2SAT 100; BMI 29.0
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
[2019-04-29 03:13] VITALS: BP 132/81; PULSE 87; RESP 16; O2SAT 97
--- NOTE | 2019-05-29 19:31 | CM.ED ---
SOCIAL WORK ATTEMPTED TO CONTACT PATIENT TO UPDATE ON ED CARE PLAN. CALL WENT STRAIGHT TO [employer]. WILL NEED TO VERIFY MAILING ADDRESS FOR PATIENT TO SEND COPY OF ED CARE PLAN. WILL TRY CONTACTING PATIENT AT A LATER DATE. ROSIE PETERSON, MIXING TUMBLER OPERATOR.
== END 2019-04-29 03:31 | disposition home or self-care (01) ==
PROVIDERS: Emergency Provider Emergency Medicine; Family Provider Internal Medicine; PCP Internal Medicine
DX: T69.9XXA Effect of reduced temperature, unspecified, initial encounter (principal); X31.XXXA Exposure to excessive natural cold, initial encounter; Y93.9 Activity, unspecified; Y92.9 Unspecified place or not applicable; M79.7 Fibromyalgia; F31.9 Bipolar disorder, unspecified; I25.10 Atherosclerotic heart disease of native coronary artery without angina pectoris; I10 Essential (primary) hypertension; J44.9 Chronic obstructive pulmonary disease, unspecified; Z59.0 Homelessness; Z79.899 Other long term (current) drug therapy; F17.200 Nicotine dependence, unspecified, uncomplicated
CPT/HCPCS: 99284

== ENCOUNTER 2021-12-01 21:10 | Emergency (ER) | payer MEDICARE, MEDICAID, SELFPAY ==
[2021-12-01 21:12] VITALS: BP 132/80; PULSE 87; RESP 18; TEMP 36.6; O2SAT 95; BMI 39.4
--- NOTE | 2021-12-01 21:15 | EKG12_ITS ---
Test Reason : CP Blood Pressure : / mmHG Vent. Rate : 087 BPM Atrial Rate : 087 BPM P-R Int : 164 ms QRS Dur : 084 ms QT Int : 376 ms P-R-T Axes : 069 -11 092 degrees QTc Int : 452 ms Normal sinus rhythm Nonspecific ST and T wave abnormality Abnormal ECG Confirmed by FABIO BEDOYA, ERIC ([id number]), commissioning editor JOSE MCCULLOUGH ([id number]) on 12/05/2021 9:23:01 AM Referred By: BB Confirmed By:ERIC MCCARTHY MD
[2021-12-01 21:31] LABS: Absolute Lymphocyte Count 1.81 X10^3/uL (0.83-4.51); Absolute Neutrophil Count 6.1 X10^3/uL (2.0-7.7); Basophil# 0.06 X10^3/uL; Basophil% 0.7 % (0-1); Eosinophil# 0.42 X10^3/uL; Eosinophils% 4.6 % (0-5); Hematocrit 41.8 % (40-54); Hemoglobin 13.6 g/dL (13.0-16.5); Lymphocyte # 1.81 X10^3/ul (0.83-4.51); Lymphocyte % 19.7 % (19-41); Mean Corp Hgb Conc 32.5 g/dL (32-36); Mean Corpuscular Hgb 30.6 pg (27.0-32.0); Mean Corpuscular Volume 93.9 fL (80-94); Mean Platelet Vol. 9.5 fl (6.2-12.0); Monocyte% 8.7 % (0-10); NRBC Flagged by Analyzer 0 % (0-5); Neutrophil # 6.09 X10^3/uL (2.7-7.7); Neutrophil % 66.1 % (47-70); Platelet Count 341 K/mm3 (150-450); RBC Distribution Width SD 47.8 fl (35.1-43.9); Red Blood Count 4.45 M/mm3 (4.6-6.2); White Blood Count 9.2 K/mm3 (4.4-11.0)
--- NOTE | 2021-12-01 21:40 | RAD_ITS ---
INDICATION: chest pain EXAMINATION/TECHNIQUE: X-RAY - XR Chest 1 View COMPARISON: 03/28/2019. FINDINGS: The lungs are clear. Tortuous and calcified thoracic aorta. The heart is not enlarged. No pleural effusion or pneumothorax. No acute osseous abnormalities. RAD/Chest 1 View (Portable) IMPRESSION: No acute radiographic abnormalities. Electronically Signed: Neal Amin MD at 22:36 EDT ,
[2021-12-01 21:58] LABS: Anion Gap 3 (5-15); BUN 21 mg/dL (7-18); BUN/Creat Ratio 26.9 RATIO (10-20); Calcium,Total 9.2 mg/dL (8.5-10.1); Chloride 111 mmol/L (98-107); Creatinine, Serum 0.78 mg/dL (0.70-1.30); EST Glomerular Filtration Rate 107 mL/min (>60); Est Glom Filt Rate - Afr Amer 130 mL/min (>60); Estimated Creatinine Clearance 83.28 ml/min; Glucose 118 mg/dL (74-106); Potassium 4.2 mmol/L (3.5-5.1); Sodium Level 141 mmol/L (136-145); Troponin-I HS 4 pg/mL (3.0-78.0)
[2021-12-01] MEDS: LORazepam 2 MG/ML Syringe 1 MG IV (22:26)
[2021-12-01 22:28] VITALS: BP 131/76; PULSE 89; RESP 18; O2SAT 95
[2021-12-02 00:05] LABS: Troponin-I HS 5 pg/mL (3.0-78.0)
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
[2021-12-02 00:53] VITALS: BP 131/74; PULSE 73; RESP 16; O2SAT 96
== END 2021-12-02 00:53 | disposition home or self-care (01) ==
PROVIDERS: Emergency Provider Emergency Medicine; Visit Provider Emergency Medicine
DX: R07.89 Other chest pain (principal); I26.99 Other pulmonary embolism without acute cor pulmonale; J44.9 Chronic obstructive pulmonary disease, unspecified; I25.10 Atherosclerotic heart disease of native coronary artery without angina pectoris; F17.210 Nicotine dependence, cigarettes, uncomplicated; I10 Essential (primary) hypertension; F41.9 Anxiety disorder, unspecified; Z79.01 Long term (current) use of anticoagulants; E78.5 Hyperlipidemia, unspecified
CPT/HCPCS: 71045; 80048; 84484; 85025; 93005; 96374; 99285; A4216

== ENCOUNTER 2021-12-03 11:47 | Emergency (ER) | payer MEDICARE, MEDICAID, SELFPAY ==
[2021-12-03 11:50] VITALS: BP 156/84; PULSE 83; RESP 16; TEMP 36.4; O2SAT 99; BMI 34.3
--- NOTE | 2021-12-03 12:01 | EKG12_ITS ---
Test Reason : anxiety Blood Pressure : / mmHG Vent. Rate : 078 BPM Atrial Rate : 078 BPM P-R Int : 180 ms QRS Dur : 086 ms QT Int : 362 ms P-R-T Axes : 074 011 080 degrees QTc Int : 412 ms Normal sinus rhythm Nonspecific ST and T wave abnormality Abnormal ECG Confirmed by FABIO BEDOYA, ERIC ([id number]), fan mail editor JOSE MCCULLOUGH ([id number]) on 12/05/2021 9:10:07 AM Referred By: Roosevelt Confirmed By:ERIC CMCARTHY MD
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
[2021-12-03] MEDS: LORazepam 2 MG/ML Syringe 1 MG IV (12:27)
[2021-12-03 12:45] LABS: Absolute Lymphocyte Count 1.73 X10^3/uL (0.83-4.51); Absolute Neutrophil Count 5.7 X10^3/uL (2.0-7.7); Basophil# 0.05 X10^3/uL; Basophil% 0.6 % (0-1); Eosinophil# 0.37 X10^3/uL; Eosinophils% 4.3 % (0-5); Hematocrit 42.1 % (40-54); Hemoglobin 14.1 g/dL (13.0-16.5); Lymphocyte # 1.73 X10^3/ul (0.83-4.51); Lymphocyte % 20.1 % (19-41); Mean Corp Hgb Conc 33.5 g/dL (32-36); Mean Corpuscular Hgb 30.9 pg (27.0-32.0); Mean Corpuscular Volume 92.1 fL (80-94); Mean Platelet Vol. 9.2 fl (6.2-12.0); Monocyte# 0.79 X10^3/uL; Monocyte% 9.2 % (0-10); NRBC Flagged by Analyzer 0 % (0-5); Neutrophil # 5.66 X10^3/uL (2.7-7.7); Neutrophil % 65.6 % (47-70); Platelet Count 343 K/mm3 (150-450); RBC Distribution Width CV 13.6 % (11.6-14.6); RBC Distribution Width SD 46.2 fl (35.1-43.9); Red Blood Count 4.57 M/mm3 (4.6-6.2); White Blood Count 8.6 K/mm3 (4.4-11.0)
[2021-12-03 13:03] LABS: Anion Gap 3 (5-15); BUN 18 mg/dL (7-18); BUN/Creat Ratio 28.3 RATIO (10-20); Calcium,Total 9.4 mg/dL (8.5-10.1); Chloride 108 mmol/L (98-107); Creatinine, Serum 0.64 mg/dL (0.70-1.30); EST Glomerular Filtration Rate 136 mL/min (>60); Est Glom Filt Rate - Afr Amer 165 mL/min (>60); Estimated Creatinine Clearance 101.49 ml/min; Glucose 110 mg/dL (74-106); Sodium Level 137 mmol/L (136-145); Troponin-I HS < 3 pg/mL (3.0-78.0)
[2021-12-03] MEDS: Celecoxib 200 MG Capsule PO (13:05)
[2021-12-03 15:10] VITALS: RESP 16; O2SAT 99
== END 2021-12-03 15:10 | disposition home or self-care (01) ==
PROVIDERS: Emergency Provider Emergency Medicine; Visit Provider Emergency Medicine
DX: F41.1 Generalized anxiety disorder (principal); F20.9 Schizophrenia, unspecified; J44.9 Chronic obstructive pulmonary disease, unspecified; E78.00 Pure hypercholesterolemia, unspecified; I10 Essential (primary) hypertension; F17.210 Nicotine dependence, cigarettes, uncomplicated; M89.8X9 Other specified disorders of bone, unspecified site; E78.5 Hyperlipidemia, unspecified; I25.10 Atherosclerotic heart disease of native coronary artery without angina pectoris
CPT/HCPCS: 80048; 84484; 85025; 93005; 96374; 99284; A4216

== ENCOUNTER → 2024-07-02 | Outpatient (CLI) | payer MEDICARE, MEDICAID, SELFPAY ==
--- NOTE | 2024-07-02 13:55 | RAD_ITS ---
PROCEDURE: CERVICAL SPINE 2 OR 3 VIEWS REASON FOR EXAM: Back pain. TECHNIQUE: 3 views of the cervical spine. COMPARISON: None. FINDINGS: Normal vertebral body heights. No visible fracture. Grade 1-2 anterolisthesis of C3 on C4 by approximately 5 mm. Marked narrowing of the C3 through C7 interspaces. Mild spondylosis, C4 through C7. Prevertebral soft tissues are unremarkable. RAD/Cerv Spine 2 or 3 Views IMPRESSION: Grade 1-2 anterolisthesis, C3 on C4. Multilevel spondylosis and degenerative disc disease. Reading Location: [facility]
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
== END | disposition home or self-care (01) ==
PROVIDERS: Referring Provider Anesthesiology Pain Medicine; Visit Provider Anesthesiology Pain Medicine
DX: M54.9 Dorsalgia, unspecified (principal)
CPT/HCPCS: 72040; 72100

== ENCOUNTER 2024-08-03 23:03 | Emergency (ER) | payer MEDICARE, MEDICAID, SELFPAY ==
[2024-08-03 23:04] VITALS: BP 154/93; PULSE 102; RESP 16; TEMP 36.6; O2SAT 99; BMI 42.6
[2024-08-03 23:06] VITALS: BP 154/93; PULSE 102; RESP 16; TEMP 36.7; O2SAT 99
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
--- NOTE | 2024-08-03 23:17 | ED.RN ---
This RN unable to complete medication reconciliation. Patient is poor historian.
--- NOTE | 2024-08-03 23:59 | ED.RN ---
Addendum entered by Michelle Miller 08/04/24 00:15: [Above note was saved prematurely.] This RN apologized to the patient and reassured the patient that this RN was qualified to be his nurse. The patient stated I want a new nurse, you are not going to put a needle in me, and if I can't have that then I am going to leave. This RN explained to the patient that d/t the high volume of patients and staffing shortages, I would be the primary nurse on his case and that I was more than qualified to establish IV access. At the time, Nena from registration was in the room and witnessing the conversation. Nena assured the patient that this RN was qualified to be the patient's nurse and Nena assured the patient that this RN would do an excellent job as his nurse. The patient then stated okay, well thank you Ma'am and you can go ahead and start an IV, sorry I was being rude to you. This RN was able to establish an IV and the patient was apologetic to this RN about the stated situation. Original Note: This RN went into the patient's room to obtain IV access and the ordered wound culture. Upon entering, the patient began to say I want a new nurse. I don't like your attitude, I don't like how you are discriminating against me and I definitely do not want you to touch me with a needle. This RN questioned what this RN did to upset the patient and how this RN could remediate the situation. The patient could not provide any example of how this RN upset the patient. The patient stated that
[2024-08-04 00:13] LABS: Absolute Lymphocyte Count 1.78 X10^3/uL (0.83-4.51); Absolute Neutrophil Count 7.2 X10^3/uL (2.0-7.7); Basophil# 0.07 X10^3/uL; Basophil% 0.7 % (0-1); Eosinophil# 0.42 X10^3/uL; Eosinophils% 3.9 % (0-5); Hemoglobin 14.1 g/dL (13.0-16.5); Lymphocyte # 1.78 X10^3/ul (0.83-4.51); Lymphocyte % 16.7 % (19-41); Mean Corp Hgb Conc 33.6 g/dL (32-36); Mean Corpuscular Hgb 29.3 pg (27.0-32.0); Mean Corpuscular Volume 87.1 fL (80-94); Mean Platelet Vol. 9.2 fl (6.2-12.0); Monocyte# 1.08 X10^3/uL; Monocyte% 10.1 % (0-10); NRBC Flagged by Analyzer 0 % (0-5); Neutrophil # 7.23 X10^3/uL (2.7-7.7); Neutrophil % 67.6 % (47-70); Platelet Count 278 K/mm3 (150-450); RBC Distribution Width CV 14.8 % (11.6-14.6); RBC Distribution Width SD 47.5 fl (35.1-43.9); Red Blood Count 4.82 M/mm3 (4.6-6.2); White Blood Count 10.7 K/mm3 (4.4-11.0)
[2024-08-04 00:15] VITALS: BP 153/98; PULSE 93; RESP 18; TEMP 36.7; O2SAT 94
[2024-08-04 00:54] LABS: Anion Gap 13 (5-15); BUN 20 mg/dL (4-19); BUN/Creat Ratio 27.3 RATIO (10-20); Calcium,Total 9.5 mg/dL (7.6-11.0); Carbon Dioxide 23.9 mmol/L (21.0-32.0); Chloride 102 mmol/L (98-108); Creatinine, Serum 0.75 mg/dL (0.70-1.20); EST Glomerular Filtration Rate 102 (>60); Estimated Creatinine Clearance 114.94 ml/min (50-250); Glucose 121 mg/dL (70-99); Potassium 4.5 mmol/L (3.3-5.1); Sodium Level 139 mmol/L (133-145)
[2024-08-04 01:00] VITALS: BP 139/89; PULSE 66; RESP 18; TEMP 36.6; O2SAT 97
== END 2024-08-04 01:13 | disposition home or self-care (01) ==
PROVIDERS: Emergency Provider Emergency Medicine; Visit Provider Emergency Medicine
DX: L97.921 Non-pressure chronic ulcer of unspecified part of left lower leg limited to breakdown of skin (principal); F25.9 Schizoaffective disorder, unspecified; J44.9 Chronic obstructive pulmonary disease, unspecified; G62.9 Polyneuropathy, unspecified; I25.10 Atherosclerotic heart disease of native coronary artery without angina pectoris; E78.5 Hyperlipidemia, unspecified; J02.9 Acute pharyngitis, unspecified; R11.0 Nausea; M54.2 Cervicalgia; R51.9 Headache, unspecified; F17.210 Nicotine dependence, cigarettes, uncomplicated; Z90.49 Acquired absence of other specified parts of digestive tract; K21.9 Gastro-esophageal reflux disease without esophagitis; I10 Essential (primary) hypertension
CPT/HCPCS: 80048; 85025; 87070; 87077; 87186; 87205; 99283; A4216

== ENCOUNTER 2024-08-10 19:34 | Emergency (ER) | payer MEDICARE, MEDICAID, SELFPAY ==
[2024-08-10 19:34] VITALS: BP 164/94; PULSE 111; RESP 16; TEMP 35.9; O2SAT 97; BMI 43.9
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
[2024-08-10 20:57] VITALS: BP 164/94; PULSE 111; RESP 16; TEMP 35.9; O2SAT 97
== END 2024-08-10 20:59 | disposition home or self-care (01) ==
LOC: ED 20:59
PROVIDERS: Emergency Provider Emergency Medicine; Visit Provider Emergency Medicine
DX: B86 Scabies (principal); F20.9 Schizophrenia, unspecified; J44.9 Chronic obstructive pulmonary disease, unspecified; E78.5 Hyperlipidemia, unspecified; I25.10 Atherosclerotic heart disease of native coronary artery without angina pectoris; F17.210 Nicotine dependence, cigarettes, uncomplicated; Z90.49 Acquired absence of other specified parts of digestive tract; I10 Essential (primary) hypertension; K21.9 Gastro-esophageal reflux disease without esophagitis
CPT/HCPCS: 99282

== ENCOUNTER → 2024-08-13 | Outpatient (CLI) | payer MEDICARE, MEDICAID, SELFPAY ==
[2024-08-13 16:55] LABS: Hepatitis B Surface Antibody Nonreactive
[2024-08-13 17:11] LABS: CPK Total, Creatine Kinase 53 U/L (24-195); Hepatitis B Surface Antigen Nonreactive (Nonreactive); Hepatitis C Antibody Nonreactive (Nonreactive)
[2024-08-17 11:08] LABS: Anti-Nuclear Antibody Test Negative (.)
[2024-08-17 16:08] LABS: Aldolase 4.6 U/L (3.3-10.3); Hepatitis B Core AB IgM Negative (Negative); QNTFERON TB Mitogen Value > 10.00 IU/mL (.); QNTFERON TB Nil Value 0.03 IU/mL (.); QNTFERON TB1+ Ag Value 0.04 IU/mL (.); QNTFERON TB2+ Ag Value 0.04 IU/mL (.); QNTIFERON TB Positive Criteria Negative (Negative)
== END | disposition home or self-care (01) ==
LOC: MTLAB 13:05
PROVIDERS: Referring Provider Dermatology; Visit Provider Dermatology
DX: L40.0 Psoriasis vulgaris (principal)
CPT/HCPCS: 36415; 82085; 82550; 86038; 86480; 86705; 86706; 86803; 87340

== ENCOUNTER 2024-09-01 18:22 | Emergency (ER) | payer MEDICARE, MEDICAID, SELFPAY ==
[2024-09-01 18:25] VITALS: BP 165/125; PULSE 85; RESP 16; TEMP 36.4; O2SAT 97
--- NOTE | 2024-09-01 19:09 | ED.RN ---
This RN was standing at the nurse's station, the patient walked out of his room and stated I am out of here. I waited too long, I am going home. This RN attempted to talk with the patient, however, the patient kept walking past the nurse's station and walked out of the department.
== END 2024-09-01 19:10 | disposition left against medical advice (07) ==
LOC: ED 19:13
DX: R60.9 Edema, unspecified (principal)
CPT/HCPCS: 99281

== ENCOUNTER → 2025-01-07 | Outpatient (CLI) | payer MEDICARE, MEDICAID, SELFPAY | END | disposition home or self-care (01) | PROVIDERS: PCP Nurse Practitioner Family; Referring Provider Psychiatry & Neurology Neurology; Visit Provider Psychiatry & Neurology Neurology | DX: Z00.00 Encounter for general adult medical examination without abnormal findings (principal) ==

== ENCOUNTER → 2025-01-14 | Outpatient (CLI) | payer MEDICARE, MEDICAID, SELFPAY ==
[2025-01-14 10:40] LABS: Hematocrit 40.0 % (40-54); Hemoglobin 13.5 g/dL (13.0-16.5); Immature Granulocytes Count 0.040 X10^3/uL (0.0-0.0); Mean Corp Hgb Conc 33.8 g/dL (32-36); Mean Corpuscular Volume 91.7 fL (80-94); Mean Platelet Vol. 9.6 fl (6.2-12.0); NRBC Flagged by Analyzer 0 % (0-5); Platelet Count 349 K/mm3 (150-450); RBC Distribution Width CV 13.9 % (11.6-14.6); RBC Distribution Width SD 47.3 fl (35.1-43.9); Red Blood Count 4.36 M/mm3 (4.6-6.2); White Blood Count 9.4 K/mm3 (4.4-11.0)
[2025-01-14 13:20] LABS: AST(SGOT) 30 U/L (<=37); Alanine Aminotransfer ALT/SGPT 22 U/L (<=46); Albumin, Serum 3.8 g/dL (3.4-4.8); Alkaline Phosphatase 82 U/L (40-129); Anion Gap 11 (5-15); BUN 14 mg/dL (4-19); BUN/Creat Ratio 17.6 RATIO (10-20); Calcium,Total 9.1 mg/dL (7.6-11.0); Carbon Dioxide 23.8 mmol/L (21.0-32.0); Chloride 105 mmol/L (98-108); Cholesterol 86 mg/dL (<=200); Globulin 2.8 g/dL (2.2-4.2); Glucose 95 mg/dL (70-99); Low Density Lipoprotein Calc. 12 mg/dL; Potassium 4.0 mmol/L (3.3-5.1); Triglycerides 144 mg/dL; Very Low Density Lipoprotein 29 mg/dL (5-40); cholesterol:hdl ratio screen 1.90
[2025-01-19 04:07] LABS: HEPATITIS B SURFACE AG Negative (Negative); Hep C Antibodies Non Reactive (Non Reactive); QNTFERON TB Mitogen Value > 10.00 IU/mL (.); QNTFERON TB Nil Value 0.08 IU/mL (.); QNTFERON TB1+ Ag Value 0.05 IU/mL (.); QNTFERON TB2+ Ag Value 0.04 IU/mL (.); QNTIFERON TB Positive Criteria Negative (Negative)
== END | disposition home or self-care (01) ==
LOC: MTLAB 08:43
PROVIDERS: PCP Nurse Practitioner Family; Referring Provider Physician Assistant; Visit Provider Physician Assistant
DX: L20.89 Other atopic dermatitis (principal)
CPT/HCPCS: 36415; 80053; 80061; 80074; 85025; 86480

== ENCOUNTER → 2025-01-26 | Outpatient (CLI) | payer MEDICARE, MEDICAID, SELFPAY ==
--- NOTE | 2025-01-26 12:30 | MRI_ITS ---
PROCEDURE: BRAIN WITHOUT CONTRAST 01/26/2025 REASON FOR EXAM: HX CVA, HX NOCTURNAL SEIZURES; MEMORY LOSS TECHNIQUE: Procedure Code: MRIBR Modality: MR Procedure: BRAIN WITHOUT CONTRAST Multiplanar and multisequence images were obtained. COMPARISON: none FINDINGS: No acute or hyperacute infarcts. No intracerebral or extra-axial acute hemorrhage. Bilateral cerebral periventricular and subcortical as well as pontine foci and patches of high T2/FLAIR WI signal. Normal MRI signal of the cerebellar hemispheres and rest of the brain stem. Dilated ventricular system, cortical sulci and extra-axial CSF spaces. No shift of midline structures. Normal MRI appearance of the petrous temporal bones cerebellopontine angles with no definite masses. Normal MRI appearance of orbital structures, both globes, optic nerves, optic chiasm, optic tracts and optic radiations. Scanned paranasal sinuses show minimal ethmoidal sinusitis. Left parietal bone area of high T2 signal, possibly hemangioma. MRI/Brain without Contrast IMPRESSION: No acute infarcts. No intracerebral or extra-axial hematomas. Bilateral cerebral and pontine microvascular ischemic changes. Brain involutional changes. Reading Location: [place] [id number]
--- NOTE | 2025-01-26 13:23 | ART_ITS ---
Reason For Study Reason For Study: Absent Pedal Pulses Procedure A bilateral lower extremity continuous wave Doppler with analog waveform analysis and ankle brachial indexes. Left Segmental Pressures Left brachial= 172mmHg. Left posterior tibial artery = 180mmHg. Left dorsalis pedis artery = 165mmHg. Left digit = 88 mmHg. The left posterior tibial artery waveforms are triphasic. The left dorsalis pedis waveforms are triphasic. Right Segmental Pressures Right brachial= 172mmHg. Right posterior tibial artery = 202mmHg. Right dorsalis pedis artery = 181mmHg. Right digit = 120 mmHg. The right posterior tibial artery waveforms are triphasic. The right dorsalis pedis waveforms are triphasic. Indices The right ankle brachial index by the posterior tibial artery is 1.17. The right ankle brachial index by the dorsalis pedis is 1.05. The right digital-brachial index is 0.70. The left ankle brachial index by the posterior tibial artery is 1.05. The left ankle brachial index by the dorsalis pedis is 0.96. The left digital-brachial index is 0.51. VL/Ankle Brachial Index Interpretation Summary Triphasic Doppler waveforms are noted at ankle level bilaterally. Pulse-volume recordings appear satisfactory at ankle level bilaterally, but diminished at digital level bilaterally. Resting ankle-b rachial indices are normal bilaterally. Digital-brachial indices are mildly diminished bilaterally. Arterial flow appears normal at ankle level bilaterally. There is evidence of m ild arterial occlusive disease at digital level bilaterally. Ordering Physician: Blayne Small Referring Physician: Caryn Martino Performed By: Javi Babin RVT
== END | disposition home or self-care (01) ==
LOC: OPMRI 11:49
PROVIDERS: PCP Nurse Practitioner Family; Referring Provider Psychiatry & Neurology Neurology; Visit Provider Psychiatry & Neurology Neurology
DX: R09.89 Other specified symptoms and signs involving the circulatory and respiratory systems (principal)
CPT/HCPCS: 70551; 93922